=== PATIENT | female | born 1940 | race Caucasian/White ===

== ENCOUNTER → 2016-12-28 | Outpatient (CLI) | payer MEDICARE ==
[~2016-12-28] MED LIST: ACID CONTROL150 M1; ALBUTEROL17 GM INH; B/P PILL PO; BACTRIM DS TABL1 TAB PO; DICLOFENAC PO; DIOVAN HCT 160/1 TAB PO; DIOVAN HCT 80/11 TAB PO; HYDROCHLOROTHIA25 MG PO; K-DUR20 ME2 PO; LEVAQUIN PO; LEVOTHROID100 MC1 PO; LISINOPRIL-HCTZ1 T14 PO; METOPROLOL TAR25 MG PO; METRONIDAZOLE PO; MUSCLE RELAXER; NORVASC PO; NORVASC10 MG PO; PRAVASTATIN SOD40 MG PO; PREDNISONE PO; PRILOSEC20 MG PO; PROAIR HFA8.5 GM INH; PYRIDIUM PO; SYNTHROID PO; ULTRAM PO; WELLBUTRIN100 MG; ZOCOR PO; [UNRECOGNIZED DRUG - REMARK]
--- NOTE | ~2016-12-28 | MY11 ---
[facility] A Service of [facility] RADIOLOGY TEXT RESULTS PATIENT: ARELY MURRIETA LOCATION: [facility] : 42 UNIT #: [id number] AGE: [address]: Irlanda Acevedo MD SEX: F ORDER DR: [id number] [address] [address] [id number] MR#: [id number] #: [id number] NAME: ARELY MURRIETA : 1940 SEX: F STUDY DATE/TIME: 12/28/2016 9:56 UNIT: [facility] ROOM: STUDY DESCRIPTION: MY Mammogram Screening Dig Cyril Attending Physician: Irlanda Acevedo M.D. Ordering Physician: Irlanda cAevedo M.D. Primary Care Physician: Irlanda Acevedo M.D. MEDICAL IMAGING REPORT This report is preliminary unless electronic signature is present. EXAM Bilateral digital screening mammogram with CAD device 12/28/2016 HISTORY Routine screening. FINDINGS Digital imaging of each breast was completed utilizing a two-view examination of each breast in craniocaudal and mediolateral-oblique projections. Review and interpretation of digital mammograms include a second review in conjunction with FDA-approved CAD device. There is a normal parenchymal presentation bilaterally consistent with the patient's age. There are no breast masses imaged and no parenchymal asymmetry is visualized. There are no suspicious microcalcifications and I see no focal architectural disturbance. IMPRESSION Negative screening digital mammogram. One-year followup recommended. Patients over the age of 40 are entered into a reminder system with target due date for the next mammogram. A result letter will also be sent to the patient. BIRADS: 1 Negative Dictated by... Huang Chicas M.D. THIS IS AN ELECTRONICALLY VERIFIED REPORT Huang Chicas M.D. at 12/29/2016 7:45 AM BIJAN/justen [facility] A Service of [facility] RADIOLOGY TEXT RESULTS PATIENT: ARELY MURRIETA LOCATION: [facility] : 42 UNIT #: [id number] AGE: [address]: Irlanda Acevedo MD SEX: F ORDER DR: TD: 12/28/2016 11:00 JOB #: [id number] MEDICAL IMAGING REPORT Page 1 of 1
== END | disposition home or self-care (01) ==
LOC: SMAM 07:42
DX: Z12.31 Encounter for screening mammogram for malignant neoplasm of breast (principal)
CPT/HCPCS: G0202

== ENCOUNTER → 2016-12-28 | Outpatient (CLI) | payer MEDICARE ==
[2016-12-28 09:42] LABS: BASOPHIL# 0.1 X10e3 (0-0.3); BASOPHIL% 1.8 % (0-2.5); EOSINOPHIL# 0.1 X10e3 (0-0.7); HEMOGLOBIN 13.4 gm/dL (12.0-16.0); LYMPHOCYTE# 1.7 X10e3 (1.0-3.5); LYMPHOCYTE% 23.3 % (17.0-45.0); MEAN CELL VOLUME 83.7 FL (83-96); MEAN CORPUSCULAR HEMOGLOBIN 27.3 PG (28-34); MEAN CORPUSCULAR HGB CONC 32.6 g/dL (30-36); MEAN PLATELET VOLUME 9.4 FL (6.5-11.5); MONOCYTE# 0.7 X10e3 (0-1.0); MONOCYTE% 10.2 % (3.0-12.0); NEUTROPHIL# 4.5 X10e3 (1.5-7.1); NEUTROPHIL% 62.7 % (40-75); PLATELET COUNT 313 X10e3 (140-420); RED BLOOD COUNT 4.89 X10e (3.90-5.30); RED CELL DISTRIBUTION WIDTH 14.3 % (11.0-15.5); WHITE BLOOD COUNT 7.2 X10e3 (4.0-10.5)
[2016-12-28 09:43] LABS: DIFF IND NO
[2016-12-28 09:48] LABS: ALBUMIN SERUM 4.2 g/dL (3.5-5.0); BILIRUBIN,TOTAL 0.8 mg/dL (0.2-2.0); BUN/CREATININE RATIO 17.69; CALCIUM SERUM 9.7 mg/dL (8.4-10.2); CREATININE SERUM 1.3 mg/dL (0.6-1.4); GLOM FILT RATE Estimated 40.1 mL/min (>60); POTASSIUM 3.7 mmol/L (3.5-5.1); PROTEIN TOTAL SERUM 7.8 g/dL (6.0-8.3)
[2016-12-28 09:52] LABS: URINE APPEARANCE SL CLOUDY; URINE BILIRUBIN NEG (NEG); URINE BLOOD 1+ (NEG); URINE COLOR YELLOW; URINE GLUCOSE NEG (NORM); URINE KETONE NEG (NEG); URINE LEUKOCYTE ESTERASE 2+ (NEG); URINE NITRATE NEG (NEG); URINE PROTEIN 1+ (NEG); URINE SPECIFIC GRAVITY >=1.030 (1.003-1.035)
[2016-12-28 09:55] LABS: MICRO INDICATED? YES
[2016-12-28 09:58] LABS: URINE BACTERIA 1+ (NEG); URINE RBC 0-2 /[HPF] (0-2); URINE SQUAMOUS EPITHELIAL CELL MODERATE /[HPF]
[2016-12-28 15:29] LABS: CREATININE,RANDOM URINE 373 mg/dL; TOTAL PROTEIN,RANDOM URINE 52 mg/dl (<10)
== END | disposition home or self-care (01) ==
LOC: SLAB 09:04
PROVIDERS: Internal Medicine Nephrology
DX: N18.2 Chronic kidney disease, stage 2 (mild) (principal)
CPT/HCPCS: 36415; 80053; 81003; 82570; 84156; 85025

== ENCOUNTER → 2017-01-08 | Outpatient (CLI) | payer MEDICARE ==
[2017-01-08 14:16] LABS: URINE APPEARANCE HAZY; URINE BILIRUBIN NEG (NEG); URINE BLOOD NEG (NEG); URINE COLOR YELLOW; URINE GLUCOSE NEG (NORM); URINE KETONE NEG (NEG); URINE LEUKOCYTE ESTERASE 3+ (NEG); URINE NITRATE NEG (NEG); URINE PH 5.5 (5-8); URINE PROTEIN NEG (NEG); URINE SPECIFIC GRAVITY <=1.005 (1.003-1.035); URINE UROBILINOGEN 0.2 MG/DL (NORM)
[2017-01-08 14:17] LABS: MICRO INDICATED? YES
[2017-01-08 14:46] LABS: URINE AMORPHOUS SEDIMENT AMORP URATES; URINE BACTERIA 1+ (NEG); URINE SQUAMOUS EPITHELIAL CELL MODERATE /[HPF]; URINE WBC 25-50 /[HPF] (0-5); URINE YEAST PRESENT
[2017-01-08 16:46] LABS: CREATININE,RANDOM URINE 24 mg/dL; TOTAL PROTEIN,RANDOM URINE <10 mg/dl (<10)
== END | disposition home or self-care (01) ==
LOC: SLAB 13:52
PROVIDERS: Internal Medicine Nephrology
DX: N18.3 Chronic kidney disease, stage 3 (moderate) (principal)
CPT/HCPCS: 36415; 81003; 82570; 84156

== ENCOUNTER → 2017-05-07 | Outpatient (CLI) | payer MEDICARE ==
[2017-05-07 12:24] LABS: BASOPHIL# 0.1 X10e3 (0-0.3); BASOPHIL% 1.3 % (0-2.5); DIFF IND NO; EOSINOPHIL# 0.1 X10e3 (0-0.7); HEMATOCRIT 38.7 % (35.0-45.0); HEMOGLOBIN 13.1 gm/dL (12.0-16.0); LYMPHOCYTE# 1.9 X10e3 (1.0-3.5); LYMPHOCYTE% 25.8 % (17.0-45.0); MEAN CELL VOLUME 83.1 FL (83-96); MEAN CORPUSCULAR HEMOGLOBIN 28.1 PG (28-34); MEAN CORPUSCULAR HGB CONC 33.9 g/dL (30-36); MEAN PLATELET VOLUME 9.3 FL (6.5-11.5); MONOCYTE# 0.7 X10e3 (0-1.0); MONOCYTE% 10.2 % (3.0-12.0); NEUTROPHIL# 4.4 X10e3 (1.5-7.1); NEUTROPHIL% 60.7 % (40-75); PLATELET COUNT 303 X10e3 (140-420); RED BLOOD COUNT 4.66 X10e (3.90-5.30); RED CELL DISTRIBUTION WIDTH 15.2 % (11.0-15.5); WHITE BLOOD COUNT 7.2 X10e3 (4.0-10.5)
[2017-05-07 12:42] LABS: URINE APPEARANCE SL CLOUDY; URINE BILIRUBIN NEG (NEG); URINE BLOOD TRACE-INTACT (NEG); URINE COLOR YELLOW; URINE GLUCOSE NEG (NORM); URINE KETONE NEG (NEG); URINE LEUKOCYTE ESTERASE 3+ (NEG); URINE NITRATE NEG (NEG); URINE PH 5.5 (5-8); URINE PROTEIN NEG (NEG); URINE SPECIFIC GRAVITY <=1.005 (1.003-1.035); URINE UROBILINOGEN 0.2 MG/DL (NORM)
[2017-05-07 12:54] LABS: ALBUMIN SERUM 4.1 g/dL (3.5-5.0); BILIRUBIN,TOTAL 0.4 mg/dL (0.2-2.0); BUN/CREATININE RATIO 17.14; CALCIUM SERUM 9.7 mg/dL (8.4-10.2); CREATININE SERUM 1.4 mg/dL (0.6-1.4); GLOM FILT RATE Estimated 36.7 mL/min (>60); POTASSIUM 3.3 mmol/L (3.5-5.1); PROTEIN TOTAL SERUM 8.1 g/dL (6.0-8.3)
[2017-05-07 13:01] LABS: MICRO INDICATED? YES
[2017-05-07 13:02] LABS: URINE BACTERIA 1+ (NEG); URINE RBC 0-2 /[HPF] (0-2); URINE SQUAMOUS EPITHELIAL CELL MODERATE /[HPF]
[2017-05-07 15:54] LABS: CREATININE,RANDOM URINE 45 mg/dL; TOTAL PROTEIN,RANDOM URINE <10 mg/dl (<10)
== END | disposition home or self-care (01) ==
LOC: SLAB 12:08
PROVIDERS: Internal Medicine Nephrology
DX: N18.2 Chronic kidney disease, stage 2 (mild) (principal)
CPT/HCPCS: 36415; 80053; 81003; 82570; 84156; 85025